=== PATIENT | female | born 1975 | race Caucasian/White ===

== ENCOUNTER 2020-02-14 04:26 | Inpatient (IN) | payer OTHER ==
[2020-02-13 17:29] VITALS: BMI 31.3
[2020-02-14] MEDS ORDERED: MIDAZOLAM HCL 2 MG/2 ML SINGLE DOSE VIAL ONE ×3 (10:24→10:44)
[2020-02-14] MEDS ORDERED: PROPOFOL 20 ML ONE ×2 (10:24→12:24)
[2020-02-14] MEDS ORDERED: LIDOCAINE HCL/PF 2% SDV 5ML VIAL ONE (10:25)
[2020-02-14] MEDS ORDERED: DEXAMETHASONE SOD PHOSPHATE/PF 10 MG/ML SDV ONE (10:42)
[2020-02-14] MEDS ORDERED: ceFAZolin SODIUM 1 GM VIAL ONE (11:27)
[2020-02-14] MEDS ORDERED: ceFAZolin SODIUM 1 GM VIAL IVPB ONE (11:29)
[2020-02-14] MEDS ORDERED: KETOROLAC TROMETHAMINE 30 MG/1 ML VIAL ONE (11:45)
[2020-02-14] MEDS ORDERED: DEXAMETHASONE SOD PHOSPHATE 4 MG/1 ML VIAL ONE (11:45)
[2020-02-14] MEDS ORDERED: ROCURONIUM BROMIDE 100 MG/10 ML VIAL ONE (11:47)
[2020-02-14] MEDS ORDERED: GLYCOPYRROLATE 0.2 MG/1 ML VIAL ONE (12:29)
[2020-02-14] MEDS ORDERED: NEOSTIGMINE METHYLSULFATE 0.5 MG/ML - 10 ML MDV ONE (12:29)
[2020-02-14] MEDS ORDERED: BACITRACIN 15 GM TUBE TOPICAL OINTMENT ONE (12:44)
[2020-02-14] MEDS ORDERED: BENZOIN/ALOE VERA/STORAX/TOLU 58 ML BOTTLE ONE (12:53)
[2020-02-14] MEDS ORDERED: ONDANSETRON 4 MG/2 ML VIAL IVPUSH PRN ×2 (13:20→13:24)
[2020-02-14] MEDS ORDERED: oxyCODONE HCL 5 MG TABLET PO PRN ×3 (13:21→13:24)
[2020-02-14] MEDS ORDERED: IBUPROFEN 800 MG/8 ML IJ IVPB PRN (13:24)
[2020-02-14] MEDS ORDERED: IBUPROFEN 600 MG TABLET (FP) PO PRN (13:24)
[2020-02-14] MEDS ORDERED: ACETAMINOPHEN 1000 MG/100 ML VIAL (NON FORMULARY) IVPB ONE (13:30)
[2020-02-14] MEDS ORDERED: DOCUSATE SODIUM 100 MG CAPSULE (FP) PO PRN (13:58)
[2020-02-14] MEDS ORDERED: HYDROmorphone HCL 2 MG TABLET PO PRN ×2 (13:58)
[2020-02-14] MEDS ORDERED: NALOXONE HCL 0.4 MG/ML VIAL IVPUSH PRN (13:58)
[2020-02-14] MEDS ORDERED: HYDROmorphone HCl 2 MG/ML VIAL IVPB PRN (14:01)
[2020-02-14] MEDS ORDERED: HYDROmorphone HCL 2 MG TABLET PO ONE (14:38)
[2020-02-14] MEDS: LACTATED RINGERS SOLUTION 1,000 ML IV SCH (17:32)
[2020-02-14] MEDS: ELECTROLYTE-148 SOLN 1,000 ML IV SCH (17:33)
[2020-02-14] MEDS: CEFAZOLIN 2 GM/D5W 2 GM/50 ML ML IVPB SCH (18:38)
[2020-02-14] MEDS ORDERED: oxyCODONE HCL 10 MG SUSTAINED ACTING TABLET PO SCH (22:00)
[2020-02-14] MEDS: ACETAMINOPHEN 1000 MG/100 ML VIAL (NON FORMULARY) IVPB SCH (23:25)
[2020-02-15] MEDS: CEFAZOLIN 2 GM/D5W 2 GM/50 ML ML IVPB SCH (02:11)
[2020-02-15] MEDS: ACETAMINOPHEN 1000 MG/100 ML VIAL (NON FORMULARY) IVPB SCH ×4 (05:30→21:58)
[2020-02-15 11:56] LABS: HEMATOCRIT 30.5 % (32.4-45.2); HEMOGLOBIN 9.8 GM/dL (10.7-15.3); MCH 23.6 pg (25.7-33.7); MCHC 32.1 g/dl (32.0-36.0); MEAN CELL VOLUME 73.4 fl (80-96); MEAN PLT VOLUME 8.3 fl (7.5-11.1); PLATELET COUNT 421 K/MM3 (134-434); RBC 4.16 M/mm3 (3.60-5.2); RDW 23.2 % (11.6-15.6); WHITE BLOOD COUNT 10.7 K/mm3 (4.0-10.0)
[2020-02-15 12:22] LABS: POTASSIUM 4.3 mmol/L (3.5-5.1)
[2020-02-15 12:27] LABS: CALCIUM 8.7 mg/dL (8.5-10.1)
[2020-02-15 12:28] LABS: ALBUMIN 3.3 g/dl (3.4-5.0); BLOOD UREA NITROGEN 9.6 mg/dL (7-18)
[2020-02-15 12:31] LABS: CREATININE 0.8 mg/dL (0.55-1.3)
[2020-02-15 12:32] LABS: BILIRUBIN,TOTAL 0.4 mg/dL (0.2-1); TOT PROT 6.3 g/dl (6.4-8.2)
[2020-02-15] MEDS: LACTATED RINGERS SOLUTION 1,000 ML IV SCH (18:01)
[2020-02-15] MEDS: ELECTROLYTE-148 SOLN 1,000 ML IV SCH (18:02)
[2020-02-15] MEDS: ENOXAPARIN NA (PORCINE) 40 MG/0.4 ML DISP.SYRIN SQ SCH (18:34)
[2020-02-16] MEDS: ACETAMINOPHEN 1000 MG/100 ML VIAL (NON FORMULARY) IVPB SCH ×4 (01:40→12:00)
[2020-02-16 06:41] VITALS: BP 138/91; PULSE 84; TEMP 98.7
[2020-02-16] MEDS ORDERED: BISACODYL 10 MG SUPP.RECT PR ONE (08:29)
[2020-02-16] MEDS: ENOXAPARIN NA (PORCINE) 40 MG/0.4 ML DISP.SYRIN SQ SCH (09:37)
== END 2020-02-16 14:10 | disposition home or self-care (01) | DRG 743 ==
LOC: J2C 04:26 → J6S 16:26
PROVIDERS: ADMIT Obstetrics & Gynecology; ATTEND Obstetrics & Gynecology
PROC: 0UT70ZZ Resection of Bilateral Fallopian Tubes, Open Approach (ICD-10-PCS; 2020-02-14)
PROC: 0DNW0ZZ Release Peritoneum, Open Approach (ICD-10-PCS; 2020-02-14)
PROC: 0UT90ZL Resection of Uterus, Supracervical, Open Approach (ICD-10-PCS; principal; 2020-02-14 10:00)
DX: D25.9 Leiomyoma of uterus, unspecified (principal); D64.9 Anemia, unspecified; N92.0 Excessive and frequent menstruation with regular cycle; N73.6 Female pelvic peritoneal adhesions (postinfective)
CPT/HCPCS: 36415; 80053; 84703; 85027; 86850; 86900; 86901; 86922; 88302-TC; 88307-TC; 94010; 94760; J0131